=== PATIENT | female | born 1955 ===

== ENCOUNTER 2023-07-07 13:33 | Inpatient (IN) | payer MEDICAID, SELFPAY ==
[2023-07-07 14:55] VITALS: BMI 30.2
[2023-07-07] MEDS ORDERED: Ondansetron PF 4 MG/2 ML Vial IVP PRN (15:12)
[2023-07-07] MEDS ORDERED: Bisacodyl 10 MG SUPP PR PRN (15:12)
[2023-07-07] MEDS ORDERED: Bisacodyl 5 MG TAB PO PRN (15:12)
[2023-07-07] MEDS ORDERED: Acetaminophen 325 MG TAB PO PRN ×2 (15:12→22:17)
[2023-07-07] MEDS ORDERED: Senokot S 8.6-50 MG TAB PO PRN (15:12)
[2023-07-07] MEDS ORDERED: Acetaminophen 500 MG TAB PO SCH (22:30)
[2023-07-08 06:05] LABS: #Monocytes 0.1 thou/uL (0.11-0.59); %Basophils 0.1 % (0.0-1.0); %Lymphocytes 12.5 % (21.0-51.0); %Monocytes 1.2 % (0.0-10.0); %Neutrophils 85.5 % (42.0-75.0); Hematocrit 41.3 % (36.0-47.0); Hemoglobin 13.9 g/dL (12.0-16.0); Mean Corpuscular HGB CONC 33.7 g/dL (32.0-36.0); Mean Corpuscular Hemoglobin 30.7 pg (27.0-31.0); Mean Corpuscular Volume 91.2 fl (78.0-98.0); RBC Distribution Width 12.2 % (11.5-14.5); Red Blood Cell (RBC) Count 4.53 mill/uL (4.20-5.40); White Blood Cell (WBC) Count 8.2 10x3/uL (4.8-10.8)
[2023-07-08 06:08] LABS: Platelet Count 2 10x3/uL (130-400)
[2023-07-08 06:14] LABS: Hemoglobin A1c 5.9 % (4.0-6.0)
[2023-07-08 06:19] LABS: INR-International Normal Ratio 1.1; PTT 25.9 sec (22.9-36.1); Prothrombin Time 14.1 sec (12.0-14.7)
[2023-07-08 06:22] LABS: Lactic Acid 2.2 mmol/L (0.5-2.2)
[2023-07-08 06:34] LABS: ALT (SGPT) 15 U/L (8-55); AST (SGOT) 17 U/L (5-34); Albumin 4.5 g/dL (3.4-4.8); Alkaline Phosphatase 82 U/L (40-110); Anion Gap 8 mmol/L (10-20); BUN (Urea Nitrogen) 19 mg/dL (9.8-20.1); Bilirubin, Direct 0.2 mg/dL (0.1-0.3); Bilirubin, Total 0.5 mg/dL (0.2-1.2); Calc. Creatinine Clearance 69 mL/min (70-130); Calcium 10.1 mg/dL (7.8-10.44); Carbon Dioxide 20 mmol/L (23-31); Cardiac Risk 4.1 (Less than 4.5); Chloride 109 mmol/L (98-107); Cholesterol 200 mg/dl (< 200 Desired); Estimated GFR 61; Glucose 184 mg/dL (80-115); HDL Cholesterol 49 mg/dL (>60 Neg Risk); LDL Cholesterol, Calculated 132 mg/dL; Magnesium 2.1 mg/dL (1.6-2.6); Potassium 3.8 mmol/L (3.5-5.1); Protein, Total 7.9 g/dL (5.8-8.1); Sodium 133 mmol/L (136-145); Triglycerides 97 mg/dL (Less than 150)
[2023-07-08 06:45] LABS: Thyroid Stimulating Hormone 0.7424 uIU/mL (0.35-4.94)
[2023-07-08 06:52] LABS: Vitamin B12 464 pg/mL (211-911)
[2023-07-08 06:58] LABS: HIV (1/2) Antibody/Antigen Non-Reactive (NonReactive); HIV 1/2 INDEX 0.11 S/CO (<1.00); Hep C IgG Ab Non-Reactive S/CO (NonReactive); Hep C Index 0.08 S/CO (0-0.79)
[2023-07-08] MEDS ORDERED: Hydrochlorothiazide 25 MG TAB PO SCH (09:00)
[2023-07-08] MEDS: Amlodipine 5 MG TAB PO SCH (09:01)
[2023-07-08] MEDS: Losartan 25 MG TAB PO SCH ×2 (09:01→09:18)
[2023-07-08] MEDS: Dexamethasone 40 MG in Sodium Chloride 0.9% 50 ML IVPB SCH (12:55)
[2023-07-08 14:33] LABS: Anion Gap 15 mmol/L (10-20); BUN (Urea Nitrogen) 21 mg/dL (9.8-20.1); Calc. Creatinine Clearance 75 mL/min (70-130); Calcium 9.9 mg/dL (7.8-10.44); Carbon Dioxide 22 mmol/L (23-31); Chloride 105 mmol/L (98-107); Estimated GFR 68; Glucose 146 mg/dL (80-115); Potassium 4.3 mmol/L (3.5-5.1); Sodium 138 mmol/L (136-145)
[2023-07-09 05:46] LABS: #Monocytes 0.4 thou/uL (0.11-0.59); #Neutrophils 10.3 thou/uL (1.40-6.50); %Basophils 0.1 % (0.0-1.0); %Lymphocytes 9.6 % (21.0-51.0); %Monocytes 3.4 % (0.0-10.0); Hematocrit 39.1 % (36.0-47.0); Hemoglobin 12.9 g/dL (12.0-16.0); Mean Corpuscular Hemoglobin 30.2 pg (27.0-31.0); Mean Corpuscular Volume 91.6 fl (78.0-98.0); RBC Distribution Width 12.7 % (11.5-14.5); Red Blood Cell (RBC) Count 4.27 mill/uL (4.20-5.40)
[2023-07-09 06:01] LABS: PTT 24.4 sec (22.9-36.1)
[2023-07-09 06:16] LABS: Platelet Count 3 10x3/uL (130-400)
[2023-07-09 06:27] LABS: Anion Gap 13 mmol/L (10-20); BUN (Urea Nitrogen) 25 mg/dL (9.8-20.1); Calc. Creatinine Clearance 62 mL/min (70-130); Calcium 9.6 mg/dL (7.8-10.44); Carbon Dioxide 19 mmol/L (23-31); Chloride 109 mmol/L (98-107); Estimated GFR 54; Glucose 177 mg/dL (80-115); Magnesium 2.1 mg/dL (1.6-2.6); Potassium 3.9 mmol/L (3.5-5.1); Sodium 137 mmol/L (136-145)
[2023-07-09] MEDS: Amlodipine 5 MG TAB PO SCH (08:54)
[2023-07-09] MEDS: Pantoprazole 40 MG VIAL IVP SCH (08:54)
[2023-07-09] MEDS: Losartan 25 MG TAB PO SCH (08:54)
[2023-07-09] MEDS ORDERED: Dexamethasone 40 MG in Sodium Chloride 0.9% 50 ML IVPB SCH (09:00)
[2023-07-09] MEDS: Dexamethasone 40 MG in Sodium Chloride 0.9% 50 ML IVPB SCH (16:05)
[2023-07-10 06:42] LABS: #Monocytes 0.2 thou/uL (0.11-0.59); #Neutrophils 7.5 thou/uL (1.40-6.50); %Basophils 0.1 % (0.0-1.0); %Lymphocytes 14.3 % (21.0-51.0); %Monocytes 1.7 % (0.0-10.0); %Neutrophils 82.2 % (42.0-75.0); Hematocrit 38.1 % (36.0-47.0); Hemoglobin 12.6 g/dL (12.0-16.0); Mean Corpuscular HGB CONC 33.1 g/dL (32.0-36.0); Mean Corpuscular Hemoglobin 30.3 pg (27.0-31.0); Mean Corpuscular Volume 91.6 fl (78.0-98.0); RBC Distribution Width 12.6 % (11.5-14.5); Red Blood Cell (RBC) Count 4.16 mill/uL (4.20-5.40); White Blood Cell (WBC) Count 9.1 10x3/uL (4.8-10.8)
[2023-07-10 06:45] LABS: Platelet Count 11 10x3/uL (130-400)
[2023-07-10 06:59] LABS: INR-International Normal Ratio 1.1; PTT 25.2 sec (22.9-36.1); Prothrombin Time 14.3 sec (12.0-14.7)
[2023-07-10 07:05] LABS: Anion Gap 14 mmol/L (10-20); BUN (Urea Nitrogen) 26 mg/dL (9.8-20.1); Calc. Creatinine Clearance 76 mL/min (70-130); Calcium 9.5 mg/dL (7.8-10.44); Carbon Dioxide 21 mmol/L (23-31); Chloride 108 mmol/L (98-107); Estimated GFR 69; Glucose 199 mg/dL (80-115); Magnesium 2.2 mg/dL (1.6-2.6); Potassium 4.3 mmol/L (3.5-5.1); Sodium 139 mmol/L (136-145)
[2023-07-10] MEDS: Losartan 25 MG TAB PO SCH (08:41)
[2023-07-10] MEDS: Amlodipine 5 MG TAB PO SCH (08:42)
[2023-07-10] MEDS: Pantoprazole 40 MG VIAL IVP SCH (08:42)
[2023-07-10] MEDS: Dexamethasone 40 MG in Sodium Chloride 0.9% 50 ML IVPB SCH (15:06)
[2023-07-11 07:10] LABS: #Monocytes 0.4 thou/uL (0.11-0.59); #Neutrophils 8.4 thou/uL (1.40-6.50); %Basophils 0.2 % (0.0-1.0); %Lymphocytes 16.1 % (21.0-51.0); %Monocytes 3.3 % (0.0-10.0); Hematocrit 38.6 % (36.0-47.0); Mean Corpuscular HGB CONC 33.7 g/dL (32.0-36.0); Mean Corpuscular Hemoglobin 30.2 pg (27.0-31.0); Mean Corpuscular Volume 89.8 fl (78.0-98.0); Mean Platelet Volume 12.8 fL (7.4-10.4); RBC Distribution Width 12.5 % (11.5-14.5); White Blood Cell (WBC) Count 10.8 10x3/uL (4.8-10.8)
[2023-07-11 07:23] LABS: Platelet Count 47 10x3/uL (130-400)
[2023-07-11 07:50] LABS: PTT 24.6 sec (22.9-36.1)
[2023-07-11 07:57] LABS: Prothrombin Time 13.8 sec (12.0-14.7)
[2023-07-11 08:53] LABS: Anion Gap 16 mmol/L (10-20); BUN (Urea Nitrogen) 29 mg/dL (9.8-20.1); Calc. Creatinine Clearance 73 mL/min (70-130); Calcium 9.4 mg/dL (7.8-10.44); Carbon Dioxide 20 mmol/L (23-31); Chloride 107 mmol/L (98-107); Estimated GFR 66; Glucose 183 mg/dL (80-115); Magnesium 2.4 mg/dL (1.6-2.6); Potassium 4.5 mmol/L (3.5-5.1); Sodium 138 mmol/L (136-145)
[2023-07-11] MEDS: Losartan 25 MG TAB PO SCH (09:03)
[2023-07-11] MEDS: Pantoprazole 40 MG VIAL IVP SCH (09:03)
[2023-07-11] MEDS: Amlodipine 5 MG TAB PO SCH (09:04)
[2023-07-11] MEDS: Dexamethasone 40 MG in Sodium Chloride 0.9% 50 ML IVPB SCH (15:50)
[2023-07-12 05:53] LABS: #Monocytes 0.4 thou/uL (0.11-0.59); #Neutrophils 6.7 thou/uL (1.40-6.50); %Basophils 0.2 % (0.0-1.0); %Lymphocytes 16.1 % (21.0-51.0); %Monocytes 4.2 % (0.0-10.0); Hematocrit 36.8 % (36.0-47.0); Hemoglobin 12.4 g/dL (12.0-16.0); Mean Corpuscular HGB CONC 33.7 g/dL (32.0-36.0); Mean Corpuscular Hemoglobin 30.4 pg (27.0-31.0); Mean Corpuscular Volume 90.2 fl (78.0-98.0); Mean Platelet Volume 11.7 fL (7.4-10.4); RBC Distribution Width 12.4 % (11.5-14.5); Red Blood Cell (RBC) Count 4.08 mill/uL (4.20-5.40); White Blood Cell (WBC) Count 8.7 10x3/uL (4.8-10.8)
[2023-07-12 06:07] LABS: INR-International Normal Ratio 1.1; Prothrombin Time 14.5 sec (12.0-14.7)
[2023-07-12 06:11] LABS: Platelet Count 89 10x3/uL (130-400)
[2023-07-12 06:18] LABS: Anion Gap 12 mmol/L (10-20); BUN (Urea Nitrogen) 28 mg/dL (9.8-20.1); Calc. Creatinine Clearance 81 mL/min (70-130); Calcium 8.7 mg/dL (7.8-10.44); Carbon Dioxide 20 mmol/L (23-31); Chloride 109 mmol/L (98-107); Estimated GFR 75; Glucose 177 mg/dL (80-115); Magnesium 2.7 mg/dL (1.6-2.6); Potassium 4.2 mmol/L (3.5-5.1); Sodium 137 mmol/L (136-145)
[2023-07-12] MEDS: Losartan 25 MG TAB PO SCH (09:20)
[2023-07-12] MEDS: Amlodipine 5 MG TAB PO SCH (09:20)
[2023-07-12] MEDS: Pantoprazole 40 MG VIAL IVP SCH (09:20)
[2023-07-12 12:31] VITALS: BP 135/75; TEMP 97.8
== END 2023-07-12 14:45 | disposition home or self-care (01) | DRG 813 ==
LOC: 2NO 14:21 → SJJU 14:46
PROVIDERS: ADMIT Family Medicine; ATTEND Internal Medicine
DX: D69.3 Immune thrombocytopenic purpura (principal); E87.1 Hypo-osmolality and hyponatremia; D69.59 Other secondary thrombocytopenia; K13.79 Other lesions of oral mucosa; I10 Essential (primary) hypertension; R73.03 Prediabetes; Z98.49 Cataract extraction status, unspecified eye; T50.905A Adverse effect of unspecified drugs, medicaments and biological substances, initial encounter; Z79.899 Other long term (current) drug therapy
CPT/HCPCS: 36415; 70450; 80048; 80061; 80076; 82533; 82607; 83036; 83605; 83735; 84443; 85025; 85610; 85730; 86803; 86850; 86900; 86901; 87389; 93005; 93010; C9113; J1100